=== PATIENT | female | born 1990 | race Caucasian/White ===

== ENCOUNTER → 2018-09-09 16:33 | Outpatient (CLI) | payer OTHER, SELFPAY ==
[2018-09-30 16:17] LABS: HPV APTIMA, High Risk Negative
== END ==
PROVIDERS: Referring Provider Nurse Practitioner Women's Health; Visit Provider Nurse Practitioner Women's Health
DX: Z12.4 Encounter for screening for malignant neoplasm of cervix (principal)
CPT/HCPCS: 87624; 88175; G0145